=== PATIENT | male | born 1965 | race Caucasian/White ===

== ENCOUNTER 2023-05-29 19:39 | Emergency (ER) | payer OTHER, SELFPAY ==
[2023-05-29 19:48] VITALS: BP 126/90
[2023-05-29 20:10] LABS: % Basophils 0.6 % (0-2); % Eosinophils 0.7 % (0-6); % Immature Granulocytes 0.2 % (0-0.5); % Lymphocytes 33.1 % (20.5-51.1); % Neutrophils 58.4 % (42.2-75.2); Absolute Basophils 0.1 10^3/uL (0-0.2); Absolute Eosinophils 0.1 10^3/uL (0-0.7); Absolute Lymphocytes 2.7 10^3/uL (1.2-3.4); Absolute Monocytes 0.6 10^3/uL (0.1-0.6); Absolute Neutrophils 4.8 10^3/uL (1.4-6.5); Hematocrit 47.1 % (39.0-52.0); Hemoglobin 17.3 g/dL (13.0-18.0); Mean Corp Hgb Conc. 36.7 g/dL (33.0-37.0); Mean Corpuscular Hgb 31.3 pg (27.0-31.0); Mean Corpuscular Volume 85.2 fL (80.0-94.0); Mean Platelet Volume 10.6 fL (7.4-10.4); Nucleated Red Blood Cells % 0 % (-); Platelet Count 243 10^3/uL (130-400); Red Blood Cell Count 5.53 10^6/uL (4.70-6.10); Red Cell Dist. Width 13.1 % (11.5-14.5); White Blood Cell Count 8.2 10^3/uL (4.8-10.8)
[2023-05-29 20:35] LABS: Troponin I < 0.012 ng/ml
[2023-05-29 20:36] LABS: ALT (SGPT) 68 U/L (0-50); AST (SGOT) 77 U/L (17-59); Alkaline Phosphatase 115 U/L (38-126); Blood Urea Nitrogen 13 mg/dl (9-20); Calcium 9.2 mg/dl (8.4-10.2); Carbon Dioxide 27 mmol/L (22-30); Chloride 96 mmol/L (98-107); Glucose 171 mg/dl (70-99); Potassium 3.3 mmol/L (3.5-5.1); Sodium 135 mmol/L (135-145); Total Bilirubin 1.2 mg/dl (0.2-1.3); Total Protein 7.7 g/dl (6.3-8.2); eGFR > 60.00
[2023-05-29 20:44] VITALS: BP 148/91
[2023-05-29 20:49] VITALS: BP 148/91; BMI 28.9
[2023-05-29 21:00] VITALS: BP 132/94
[2023-05-29 21:48] LABS: APTT 26.7 Sec (23.4-35.0)
[2023-05-29 22:42] LABS: Urine Albumin Trace (Neg - Trace); Urine Bilirubin Negative (Negative); Urine Character Clear (Clear); Urine Color Yellow; Urine Glucose Negative (Negative); Urine Ketone Negative (Negative); Urine Leukocyte Negative (Negative); Urine Nitrite Negative (Negative); Urine Occult Blood Negative (Negative); Urine Urobilinogen Negative (Neg - 1+)
--- NOTE | 2023-05-29 22:43 | ED.GENMED ---
History of Present Illness
General
Chief Complaint: Heart Rate Problem
Source: patient
Time Seen by Provider: 05/29/23 22:21
Travel History
Have you had any contact with someone who has COVID-19?: No
Do you have any symptoms of coronavirus? Fever > 100 degrees, chills, cough, shortness of breath, sore throat, loss of taste or smell, muscle aches, or headache?: No
History of Present Illness
History of Present Illness:
57-year-old male presents to the emergency room complaining of palpitations, generalized weakness. Patient states that he has been experiencing the symptoms for the past month but they seem worse today. At times his heart rates been in the 120s
but will spontaneously go back to normal. Patient denies any chest pain. Denies any URI symptoms. Denies any change in bowel habits. He was nauseous earlier. Patient has a history of atrial fibrillation for which she had an ablation in 2019.
He has been out of A-fib since then. He no longer takes any anticoagulants. Does take a baby aspirin a day.
Past History
Past History
ED Past Medical History: Asthma, CAD, HTN and Other (Seasonal allergies/rhinitis)
ED Past Surgical History: Cardiac
Social History
Tobacco: Non-smoker
Alcohol: Occasional
Drug: None
Personal:
Family History
Family History: Other (His father committed suicide. His mother had cancer but he would not give me specifics.)
Phy Exam
Physical Exam
Physical Exam:
General: Awake, Alert, Oriented X3. No acute distress.
Vitals: unremarkable
Head: Atraumatic
Eyes: Pupils equal, EOMI
Throat: Airway intact, no exudates
Neck: Trachea midline
Lungs: Clear and equal b/l
Heart: Regular rate, no murmurs
Abd: Soft, Nontender, No pulsatile mass
Neuro: Nonfocal
Skin: Warm, dry, no rash
Extremities: pulses equal b/l, no edema
Scores
[id number] Score for Afib Stroke Risk
Age in Years (65=0, 65-74=1, >/=75=2): <65
Sex (Female=+1): Male
Congestive Heart Failure History (Yes=+1): No
Hypertension History (Yes=+1): Yes
Stroke/TIA/Thromboembolism History (Yes=+2): No
Vascular Disease History (Yes=+1): No
Diabetes Mellitus (Yes=+1): Yes
Score: 2
Anticoagulation Recommendations: Recommend anticoagulation (as validated in nonvalvular fib)
Course
Orders/Labs/Results
Orders:
Orders
05/29/23 19:40
EKG [Electrocardiogram (*1)] Urgent
Reason for Study: Chest Pain
05/29/23 19:41
EKG- Treatment ONCE
05/29/23 20:03
Complete Blood Count/With Diff Urgent
05/29/23 20:04
Comprehensive Metabolic Panel Urgent
TSH Reflex To Free T4 Urgent
Comment: ADD ON
Troponin I Urgent
05/29/23 21:30
EKG [Electrocardiogram (*1)] Urgent
Reason for Study: Palpitations
EKG- Treatment ONCE
05/29/23 21:32
Protime/PTT Urgent
05/29/23 22:34
Add On- LAB Urgent
Tests Added?: tsh w reflex t4
CR Chest - 2 Views Urgent
Comment:
Reason For Exam: palpitations
05/29/23 22:37
Urinalysis Reflex To Culture Urgent
Date Specimen was Collected: 05/29/23
Time Specimen was Collected: 22:35
05/29/23 22:44
Rivaroxaban [Xarelto] 20 mg PO NOW STA
05/29/23 22:50
Metoprolol [Lopressor] 25 mg PO NOW STA
Abnormal Lab Results
05/29/23 05/29/23 05/29/23
20:03 20:04 21:32
MCH 31.3 H pg
(27.0-31.0)
MPV 10.6 H fL
(7.4-10.4)
PT 16.0 H Sec
(11.4-14.6)
Potassium 3.3 L mmol/L
(3.5-5.1)
Chloride 96 L mmol/L
(98-107)
Glucose 171 H mg/dl
(70-99)
AST 77 H U/L
(17-59)
ALT 68 H U/L
(0-50)
05/29/23 20:03
05/29/23 20:04
Vital Signs
Initial and Last Documented VS:
Initial Vital Signs
Temp Pulse Resp BP Pulse Ox
98.6 F 128 20 126/90 98
05/29/23 19:48 05/29/23 19:48 05/29/23 19:48 05/29/23 19:48 05/29/23 19:48
Last Documented Vital Signs
Temp Pulse Resp BP Pulse Ox
98.6 F 82 16 114/59 95
05/29/23 19:48 05/30/23 00:00 05/30/23 00:00 05/30/23 00:00 05/30/23 00:00
MDM/Problems Addressed
Differential Diagnosis Includes:
Paroxysmal A-fib, frequent PACs, PVCs, symptomatic anemia
MDM/Problems Addressed:
Patient presents with fatigue, lack of energy, palpitations. At the time of my evaluation the patient is noted to be in normal sinus rhythm on the monitor however when he arrived he was in A-fib with rapid ventricular response. Fortunately he has
converted spontaneously. Labs here are unremarkable. Patient had a ablation performed few years ago and therefore has not been taking anticoagulation. We will restart Xarelto. Increase dose of beta-darwin. This plan was discussed with
Debora who is on-call for the patient's cardiology group. She will help arrange outpatient follow-up
Chronic conditions affecting care: HTN and CAD
Acute Exacerbation and/or Progression of Chronic Illness: Arrhythmia (Atrial fibrillation)
*Radiology
Radiology exam reviewed: preliminary read by ED provider (Chest x-ray reviewed by myself, no acute disease noted)
*Pulse Oximetry
Patient hypoxic: no
*EKG
Interpreted by ED Provider?: Yes
Interpretation: abnormal
Heart Rate: 136
Rate: tachycardiac
Rhythm: a-fib
Baden: normal axis
Interval: normal interval
QRS Pattern: normal QRS
Ischemia: non-specific ST changes
*Supervisor Agency Appointments Interpretation
Rate: tachycardiac
Interpretation: abnormal
Rhythm: a-fib
*Critical Care Note
Total Time (30-74mins, 75-104mins- exclusive of procedures): Not Applicable
Update Note
Update Note:
Repeat EKG: Normal sinus rhythm, 97 bpm, no acute ischemic changes
ED Attending Note
-
Portions of this chart may have been created with voice recognition software.� Occasional wrong word or��sound alike� substitutions may have occurred due to the inherent limitations of voice recognition software.
Discharge Plan
Departure
Patient Disposition: Home (Routine Discharge)
Date of Disposition: 05/29/23
Time of Disposition: 23:42
Patient with high blood pressure during this ER visit?: Yes
Condition: Good
Discharge Problem:
Paroxysmal A-fib
Instructions: Atrial Fibrillation (DC)
Prescriptions:
New
metoprolol succinate 25 mg tablet extended release 24 hr
25 mg PO QHS Qty: 30 0RF
Rx Instructions:
Take once a day in the evening
Xarelto 20 mg tablet
20 mg PO DAILY Qty: 30 0RF
ondansetron 4 mg tablet,disintegrating
4 mg PO TID PRN (Reason: nausea and vomiting) Qty: 10 0RF
No Action
cetirizine [Zyrtec] 5 MG tablet
10 mg PO DAILY
atorvastatin 40 MG tablet
40 mg PO QPM Qty: 90 3RF
metoprolol succinate 50 MG tablet extended release 24 hr
50 mg PO DAILY Qty: 90 3RF
aspirin 81 MG tablet,chewable
81 mg PO DAILY 0RF
amlodipine [Norvasc] 2.5 MG tablet
2.5 mg PO DAILY
fluticasone propionate 1 SPRAY spray,suspension
1 spray intranasal DAILY
Patient Comments:
BILATERAL NOSTRIL
esomeprazole magnesium [Nexium 24HR] 20 MG capsule,delayed release(DR/EC)
20 mg PO DAILY
valsartan-hydrochlorothiazide 1 EACH tablet
1 ea PO DAILY
ibuprofen-famotidine [Duexis] 1 EACH tablet
1 ea PO .3XDAILY PRN (Reason: pain/gas)
rivaroxaban [Xarelto] 20 MG tablet
20 mg PO QPM
icosapent ethyl [Vascepa] 1 GM capsule
1 gm PO BID
doxycycline hyclate 100 mg tablet
100 mg PO BID 7 Days Qty: 14 0RF
Activity Restrictions/Additional Instructions:
You seem to be flipping in and out of a. fib. I discussed this with your cardiology group and they recommend restarting the Xarelto. You should stop taking aspirin for now. We have also adjusted the dose of the metoprolol.
Interventions
Interventions:
*Risk Screen - Suicide Last Done: 05/29/23 19:48
*General Assessment Last Done: 05/29/23 19:48
*Neglect/Abuse Screening Last Done: 05/29/23 19:48
ED- Fall Risk Assessment Last Done: 05/29/23 19:48
*ED COVID-19 Vaccine History Last Done: 05/29/23 19:48
*Nursing Disposition Last Done: 05/30/23 00:07
ED- Cardiac Assessment Last Done: 05/29/23 21:28
ED- Pulmonary Assessment Last Done: 05/29/23 21:28
Discharge Date and Time
Discharge Date/Time: 05/30/23 00:08
[2023-05-29 23:05] VITALS: BP 134/71
[2023-05-29] MEDS: XARELTO 20 MG PO (23:05)
[2023-05-29] MEDS: LOPRESSOR 25 MG PO (23:06)
[2023-05-30] VITALS: BP 114/59
== END 2023-05-30 00:08 | disposition home or self-care (01) ==
LOC: EMR 19:39
PROVIDERS: Student in an Organized Health Care Education/Training Program; EMERGENCY PHYSICIAN Emergency Medicine; FAMILY PHYSICIAN Family Medicine; REFERRING PHYSICIAN Internal Medicine Interventional Cardiology
DX: I48.0 Paroxysmal atrial fibrillation (principal); I10 Essential (primary) hypertension; I25.10 Atherosclerotic heart disease of native coronary artery without angina pectoris; Z79.82 Long term (current) use of aspirin
CPT/HCPCS: 99285; 71046; 80053; 81003; 84443; 84484; 85025; 85610; 85730; 93005

== ENCOUNTER 2025-03-22 05:54 | Day surgery (SDC) | payer OTHER, SELFPAY ==
[2025-03-13 09:40] VITALS: BMI 29.6
[2025-03-13 10:22] LABS: Hematocrit 42.7 % (39.0-52.0); Hemoglobin 14.6 g/dL (13.0-18.0); Mean Corp Hgb Conc. 34.2 g/dL (33.0-37.0); Mean Corpuscular Volume 89.0 fL (80.0-94.0); Nucleated Red Blood Cells % 0 % (-); Platelet Count 170 10^3/uL (130-400); Red Cell Dist. Width 13.7 % (11.5-14.5)
[2025-03-13 10:29] LABS: INR 1.17; PT 15.2 Sec (11.4-14.6)
[2025-03-13 11:03] LABS: ALT (SGPT) 44 U/L (0-50); AST (SGOT) 47 U/L (17-59); Albumin 4.4 g/dl (3.5-5.0); Alkaline Phosphatase 76 U/L (38-126); Blood Urea Nitrogen 16 mg/dl (9-20); Calcium 8.9 mg/dl (8.4-10.2); Carbon Dioxide 33 mmol/L (22-30); Chloride 102 mmol/L (98-107); Estimated Creatinine Clearance 93 ml/min; Glucose 128 mg/dl (70-99); Magnesium 1.7 mg/dl (1.6-2.3); Potassium 3.6 mmol/L (3.5-5.1); Sodium 143 mmol/L (135-145); Total Protein 7.8 g/dl (6.3-8.2); eGFR > 60.00
[2025-03-22] VITALS (12 sets, daily range): BP systolic 118–142; BP diastolic 69–105; BMI 28.6
[2025-03-22 06:50] LABS: Glucose - Point of Care 143 mg/dl (70-99)
--- NOTE | 2025-03-22 07:49 | ITS.CL.ABL ---
Archives Director - Ablation
Ablation
Procedure Report:
ELECTROPHYSIOLOGIC STUDY AND POSSIBLE ABLATION
DATE: March 22, 2025
Primary Care Provider: Luis Sultana
Primary Metal Polisher: Dr Archie Goetz
INDICATION:
Symptomatic Atrial Fibrillation.
Paroxysmal
HISTORY: See H and P.
Symptomatic AF, poorly controlled with attempted medical therapy
Diagnosed with atrial fibrillation in 2019. Drug eluting stent placement to the RCA March 09, 2018 in the setting of inf wall NSTEMI.�
History of coronary artery disease, CHADSVASc = 2 (HTN/NSTEMI)
He underwent electrophysiology study and ablation on 11/17/2019 with mapping and ablation to isolate the pulmonary veins.�
he had done well for many years but started feeling palpitations late in 2023.� A loop recorder was placed November 24, 2023 which has demonstrated paroxysmal atrial fibrillation with individual episodes lasting up to 25 hours in duration. He feels
poorly, feels palpitations as well as fatigue with episodes of atrial fibrillation.
HAS-BLED: 0
CHADSVASc: 2
HTN
Vascular Dz: prior MS
PRESENTING RHYTHM: SR
HISTORY: See H and P.
Symptomatic AF, poorly controlled with attempted medical therapy.
ANTICOAGULATION: Rivaroxaban 20 mg daily
'TIME-OUT': called and confirmed.
SEDATION/ANESTHESIA: provided via the anesthesia department using general anesthesia.
PROCEDURE:
Ultrasound Guidance with real-time visualization of needle insertion and vessel patency performed by ak for femoral venous Vascular Access.
Under real-time US guidance, the needle was advanced with negative pressure into the vein. The needle was seen entering the vessel lumen with a good return of dark red flow, the syringe was removed, non-pulsatile, dark red blood low was noted and
the wire was passed without difficulty, then the needle was removed. US confirmed the wire was in the vein, not going into an artery,
Images were taken and saved for the patient's permanent record. Imaging findings typical femoral venous anatomy. Direct visualization of needle puncture into the femoral vein was observed and recorded.
A decapolar CS catheter was placed within the CS for mapping and pacing.
The intracardiac ultrasound catheter was positioned in the RA for continuous intracardiac ultrasound imaging.
Heparin bolus and infusion to target ACT at 300 -350 seconds was administered. Transseptal puncture was performed. This entailed advancing a sheath with dilator into the superior vena cava and withdrawing both (monitoring intracardiac ultrasound,
fluoroscopy and tip pressure) with the tip oriented toward the atrial septum. The fossa ovalis was engaged (indicated by sudden displacement of the sheath tip as well as tenting of the fossa seen on intracardiac ultrasound).
Transseptal puncture was performed. Left atrial catheter position was confirmed by echocardiographic imaging, pressure monitoring (LA mean pressure [ ] mm Hg) and fluoroscopy. The sheath was advanced over the dilator and positioned in the left
atrium.
The Sphere 9 multipolar mapping/ablation Sphere-9 catheter was positioned through the transseptal sheath for high density mapping.
Geometry and voltage mapping was performed using the Instant AV mapping system for three-dimensional electroanatomical mapping.
Catheter positioning was guided and confirmed using both I.C.E. and fluoroscopy.
High density electroanatomical three-dimensional mapping demonstrated four PVs: LSPV, LIPV, RSPV, RIPV.
Ablation strategy included PVI as well as mapping for extra PV contributors to atrial fibrillation which would also be targeted if present.
3 of the 4 pulmonary veins are electrically isolated with entrance and exit block.
There is reconnection at the right superior pulmonary vein towards its anterior quadrant. Delivery of pulsed electric field energy via the sphere 9 catheter electrically isolated the pulmonary vein with entrance and exit block.
After accomplishing full pulmonary venous isolation, mapping identified additional areas likely to be extra PV contributors to atrial fibrillation. These areas demonstrated patchy low voltage as well as complex fractionated electrograms. These
areas can be sites for the formation of rotors which can drive and maintain atrial fibrillation. These areas are known to be significant contributors to initiation and perpetuation of atrial fibrillation.
Additional energy applications/additional ablation sets targeted extra PV contributors to atrial fibrillation.
Targets for additional PFA ablation included:
LA posterior wall targeted with pulsed electric field energy isolating the posterior wall of the left atrium
After ablation of the posterior wall, additional targets were addressed:
LA inferior floor
These areas were ablated using pulsed electric field energy eliminating the extra PV contributors to atrial fibrillation.
Post ablation mapping finds entrance and exit block at each of the pulmonary veins, the LA posterior wall and at the additional line at inferior/floor of the LA rendering the sites no longer able to contribute to atrial fibrillation.
Programmed electrostimulation including burst atrial pacing as well the delivery of decremental extrastimuli down to atrial effective refractory period and no sustained arrhythmias could be induced.
I.C.E. :
Pre-Ablation Post-Ablation
LVEF: 55 % 55 %
WMA: none none
Pericardial effusion: none none
LA Pressure (mmHg) 10 11
COMPLICATIONS:
None
SUMMARY:
- Mapping and ablation to isolate the PVs resulting in electrical isolation of the pulmonary veins
- Additional AF ablation sets X 2 after PVI (LA posterior wall, Inf/floor of the LA posterior wall) resulting in elimination of the targeted extra PV contributors to atrial fibrillation.
- 3-D Electroanatomical Mapping
- Intracardiac Ultrasound
- Ultrasound guidance for vascular access
Post ablation, I discussed today's findings and results with the patient's , Dhara.
RECOMMENDATIONS:
- Observe in monitored bed.
- Maintain oral anticoagulation (Xarelto 20 mg daily).
- Continue metoprolol succinate
- Office visit with MAGGIE Gabriel in 3 to 4 months.
- Continue cardiovascular care with Dr Archie Goetz
Copy to:
Primary Care Provider: Luis Sultana
Primary Metal Polisher: Dr Archie Goetz
[2025-03-22 08:40] LABS: ACT-LR - POC > 397 Seconds (116-155)
--- NOTE | 2025-03-22 13:49 | W.PN.UPDATE ---
Update Note
Progress Note Update
Pt seen post PFA. Right groin site without ht/bleeding, non tender. OOB ambulating, urinating without difficulty. Post EKG NSR 68, no acute changes. One dose Xarelto tonight at 5pm, then resume regular time on 03/23 in AM. Followup with
Bishnu as scheduled. Home today if groin site/tele remain stable.
== END 2025-03-22 14:00 | disposition home or self-care (01) ==
LOC: CATH 05:54
PROVIDERS: ATTENDING PHYSICIAN Internal Medicine Cardiovascular Disease; FAMILY PHYSICIAN Family Medicine; OTHER PHYSICIAN Internal Medicine Interventional Cardiology
DX: I48.0 Paroxysmal atrial fibrillation (principal); E66.9 Obesity, unspecified; Z68.29 Body mass index [BMI] 29.0-29.9, adult; I10 Essential (primary) hypertension; E78.5 Hyperlipidemia, unspecified; I25.2 Old myocardial infarction; I25.10 Atherosclerotic heart disease of native coronary artery without angina pectoris; Z95.5 Presence of coronary angioplasty implant and graft; E11.9 Type 2 diabetes mellitus without complications; G47.33 Obstructive sleep apnea (adult) (pediatric); Z91.199 Patient's noncompliance with other medical treatment and regimen due to unspecified reason; K21.9 Gastro-esophageal reflux disease without esophagitis; Z87.891 Personal history of nicotine dependence; Z79.899 Other long term (current) drug therapy; Z79.01 Long term (current) use of anticoagulants; Z88.8 Allergy status to other drugs, medicaments and biological substances
CPT/HCPCS: C1733; C1769; C1766; C1730; C1892; C1894; 36415; 80053; 82962; 83735; 85025; 85347; 85610; 86850; 86900; 86901; 93005; 93656; 93657